=== PATIENT | female | born 1955 | race African-American/Black ===

== ENCOUNTER 2019-03-11 10:42 | Inpatient (IN) | payer MEDICARE, BC ==
[~2019-03-11] VITALS: Ht 167.6 cm; Wt 103.0 kg
[~2019-03-11 10:42] MED LIST: ACET-2708 PO; AMLO10TA80 PO; ASPI-1393 PO; ATEN-42 PO; CETI10TA6 PO; CYAN500T66 PO; DORZ10DR8 BOTHEYE; GABA-531 PO; HYDR25TA PO; LACTATED RINGERS 1,000 ML IV SCH; LISI40TA4 PO; OMEP40CA34 PO; TRAM50TA3 PO; TRANEXAMIC ACID 1,000 MG in SODIUM CHLORIDE 0.9% 100 ML IV SCH; XALAO EACHEYE
[2019-03-11 11:59] LABS: CLARITY URINE CLEAR (CLEAR); COLOR URINE YELLOW (YELLOW); KETONES URINE NEGATIVE (NEGATIVE); LEUKOCYTE ESTERASE URINE NEGATIVE (NEGATIVE); NITRITE URINE NEGATIVE (NEGATIVE); OCCULT BLOOD URINE NEGATIVE (NEGATIVE); PROTEIN URINE NEGATIVE (NEGATIVE); SPECIFIC GRAVITY URINE 1.011 (1.005-1.030); UROBILINOGEN URINE 0.2 E.U./dL (0.2-1.0)
[2019-03-11] MEDS ORDERED: LACTATED RINGERS 1,000 ML IV SCH (12:00)
[2019-03-11] MEDS ORDERED: BUPIVACAINE/EPINEPH/PF 0.25%/0.0005 10ML ONE (12:05)
[2019-03-11] MEDS ORDERED: METHYLENE BLUE 50 MG/10 ML AMP IV ONE (12:05)
[2019-03-11] MEDS ORDERED: EPINEPHRINE 1:1000 1 MG/ML AMP ONE (12:06)
[2019-03-11] MEDS ORDERED: MORPHINE SULFATE/PF 1MG/ML 10ML AMP ONE (12:06)
[2019-03-11] MEDS ORDERED: GENTAMICIN SULF 40MG/ML 2ML VIAL ONE (12:06)
[2019-03-11] MEDS ORDERED: NORMAL SALINE 0.9% 10 ML SYR ONE (12:07)
[2019-03-11] MEDS ORDERED: BACITRACIN 50,000 UNITS/VIAL ONE (12:07)
[2019-03-11] MEDS ORDERED: VANCOMYCIN HCL 1 GM/VIAL ONE (12:07)
[2019-03-11] MEDS ORDERED: PROPOFOL 200MG/20ML VIAL IV ONE (13:24)
[2019-03-11] MEDS ORDERED: ROCURONIUM BROMIDE 10MG/ML VIAL 5ML IV ONE (13:24)
[2019-03-11] MEDS ORDERED: FENTANYL CITRATE/PF 50MCG/ML 2ML VIAL ONE (13:24)
[2019-03-11] MEDS ORDERED: GLYCOPYRROLATE 0.2 MG/ML 2ML VIAL ONE (13:24)
[2019-03-11] MEDS ORDERED: MIDAZOLAM HCL 2 MG/2 ML VIAL ONE (13:24)
[2019-03-11] MEDS ORDERED: NEOSTIGMINE METHYLSULFATE 1MG/ML 10 ML VIAL ONE (13:24)
[2019-03-11] MEDS ORDERED: EPHEDRINE SULFATE 50MG/ML VIAL ONE (13:24)
[2019-03-11] MEDS ORDERED: PHENYLEPHRINE HCL 10 MG/ML 1ML (IV VIAL) IV ONE (13:24)
[2019-03-11] MEDS ORDERED: SODIUM CHLORIDE 0.9% 10ML VIAL ONE (13:24)
[2019-03-11] MEDS ORDERED: CEFAZOLIN SODIUM 1000MG/VIAL ONE (13:24)
[2019-03-11] MEDS ORDERED: SUCCINYLCHOLINE CHLORIDE 200MG/10ML IV ONE (13:24)
[2019-03-11] MEDS ORDERED: LIDOCAINE HCL/PF 1% 10 MG/ML 5ML VIAL ONE (13:24)
[2019-03-11] MEDS ORDERED: ROPIVACAINE HCL 10MG/ML 20 ML VIAL EPI ONE (13:25)
[2019-03-11] MEDS ORDERED: DEXAMETHASONE 4MG/ML 1ML VIAL ONE (13:25)
[2019-03-11] MEDS ORDERED: ONDANSETRON HCL 4MG/2ML INJ ONE (13:25)
[2019-03-11] MEDS ORDERED: METOCLOPRAMIDE HCL 10MG/2ML VIAL ONE (13:25)
[2019-03-11] MEDS ORDERED: HYDROMORPHONE HCL/PF 2MG/ML CPJ IV PRN (16:15)
[2019-03-11] MEDS ORDERED: MEPERIDINE HCL/PF 25MG/ML CPJ IV PRN ×2 (16:15)
[2019-03-11] MEDS ORDERED: MORPHINE SULFATE 2 MG/ML CPJ (NOT FOR IM USE) IV PRN (16:15)
[2019-03-11] MEDS ORDERED: ONDANSETRON HCL 4MG/2ML INJ IV PRN ×2 (16:15→21:06)
[2019-03-11] MEDS ORDERED: SODIUM CHLORIDE 0.9% 1,000 ML IV ONE (16:30)
[2019-03-11] MEDS ORDERED: HYDROMORPHONE PCA 50 ML IV ONE (19:14)
[2019-03-11] MEDS ORDERED: NALOXONE INJ IV PRN (19:15)
[2019-03-11] MEDS ORDERED: HYDROMORPHONE PCA 10MG/50ML IV PRN (19:15)
[2019-03-11] MEDS ORDERED: ONDANSETRON INJ IV PRN (19:15)
[2019-03-11] MEDS ORDERED: DIPHENHYDRAMINE INJ IV PRN (19:15)
[2019-03-11 20:45] VITALS: BP 146/77
[2019-03-11] MEDS ORDERED: ZOLPIDEM TARTRATE 5MG TABLET PO PRN (21:00)
[2019-03-11] MEDS ORDERED: HYDROCODONE/ACETAMINOPHEN 10/325MG TABLET PO PRN (21:05)
[2019-03-11] MEDS ORDERED: ACETAMINOPHEN 325MG TABLET PO PRN (21:06)
[2019-03-11] MEDS ORDERED: MAGNESIUM HYDROXIDE 400MG/5ML 30ML UDC PO PRN (21:07)
[2019-03-11 22:25] VITALS: BP 146/77
[2019-03-12] VITALS: BP 119/60
[2019-03-12] MEDS: CEFAZOLIN 2,000 MG in DEXT 5% WATER 100 ML IV SCH ×2 (01:12→08:29)
[2019-03-12 04:00] VITALS: BP 127/69
[2019-03-12 07:28] LABS: BASOPHILS % 0.3 % (0.0-2.0); CHLORIDE 107 mEq/L (98-107); HEMATOCRIT. 30.5 % (36.0-48.0); HEMOGLOBIN. 9.9 g/dL (12.0-16.0); LYMPHOCYTES % 18.1 % (20.0-50.0); MEAN CORPUSCULAR HEMOGLOBIN 23.9 pg (28.0-32.0); MEAN CORPUSCULAR VOLUME 73.2 fL (81.0-99.0); MEAN PLATELET VOLUME 8.8 fl (7.4-10.4); MONOCYTES % 6.5 % (2.0-8.0); NEUTROPHILS % 75.1 % (40.0-76.0); PLATELET 254 x1000/uL (130-400); RED BLOOD CELL COUNT 4.17 mill/uL (4.2-5.4); RED CELL DISTRIBUTION WIDTH 15.7 % (11.6-14.6)
[2019-03-12 08:00] VITALS: BP 125/57
[2019-03-12] MEDS: DOCUSATE SODIUM 100MG CAPSULE PO SCH ×2 (08:28→16:50)
[2019-03-12] MEDS: ENOXAPARIN 30MG/0.3ML SYR SUBCUT SCH ×2 (11:35→20:27)
[2019-03-12 12:00] VITALS: BP 127/61
[2019-03-12] MEDS ORDERED: POTASSIUM CHLORIDE 20MEQ TABLET SR PO SCH (12:45)
[2019-03-12 16:00] VITALS: BP 125/74
[2019-03-12] MEDS: GABAPENTIN 300MG CAPSULE PO SCH (16:50)
[2019-03-12] MEDS: ATENOLOL 25MG TABLET PO SCH (16:54)
[2019-03-12] MEDS: DORZOLAMIDE 2% OPHTH 10 ML BOTTLE BOTHEYE SCH (18:07)
[2019-03-12 20:00] VITALS: BP 118/62
[2019-03-12] MEDS: LATANOPROST 0.005% OPHTH DROPS 2.5ML EACHEYE SCH (20:27)
[2019-03-12] MEDS: DIPHENHYDRAMINE 50MG/ML VIAL IM PRN (20:29)
[2019-03-12] MEDS: HYDROCODONE/ACETAMINOPHEN 10/325MG TABLET PO PRN (20:29)
[2019-03-13] VITALS: BP_SYST 107; BP_SYST 125; BP_DIAS 56; BP_DIAS 82
[2019-03-13] MEDS: HYDROCODONE/ACETAMINOPHEN 10/325MG TABLET PO PRN ×4 (03:03→22:50)
[2019-03-13 04:00] VITALS: BP 100/48
[2019-03-13 06:24] LABS: CHLORIDE 109 mEq/L (98-107)
[2019-03-13 06:26] LABS: BASOPHILS % 0.7 % (0.0-2.0); EOSINOPHILS % 0.3 % (0.0-5.0); HEMATOCRIT. 27.6 % (36.0-48.0); HEMOGLOBIN. 8.9 g/dL (12.0-16.0); MEAN CORPUSCULAR HEMOGLOBIN 23.9 pg (28.0-32.0); MEAN CORPUSCULAR VOLUME 73.7 fL (81.0-99.0); MEAN PLATELET VOLUME 8.4 fl (7.4-10.4); MONOCYTES % 12.1 % (2.0-8.0); NEUTROPHILS % 55.9 % (40.0-76.0); PLATELET 222 x1000/uL (130-400); RED BLOOD CELL COUNT 3.75 mill/uL (4.2-5.4); RED CELL DISTRIBUTION WIDTH 15.9 % (11.6-14.6)
[2019-03-13 06:29] LABS: TOTAL IRON BINDING CAPACITY 260 ug/dL (250-450)
[2019-03-13 06:30] LABS: LDL CHOLESTEROL 75 mg/dL (5-100)
[2019-03-13 06:32] LABS: HDL CHOLESTEROL 49 mg/dL (40-59)
[2019-03-13] MEDS: OMEPRAZOLE 20MG CAPSULE EXTENDED RELEASE PO SCH (06:49)
[2019-03-13 08:00] VITALS: BP 149/75
[2019-03-13] MEDS: DORZOLAMIDE 2% OPHTH 10 ML BOTTLE BOTHEYE SCH ×2 (08:37→16:19)
[2019-03-13] MEDS: GABAPENTIN 300MG CAPSULE PO SCH ×2 (08:38→16:19)
[2019-03-13] MEDS: DOCUSATE SODIUM 100MG CAPSULE PO SCH ×2 (08:38→16:19)
[2019-03-13] MEDS: CETIRIZINE 10MG TABLET PO SCH (08:38)
[2019-03-13] MEDS: ENOXAPARIN 30MG/0.3ML SYR SUBCUT SCH ×2 (08:39→21:08)
[2019-03-13] MEDS: AMLODIPINE 10MG TABLET PO SCH (08:42)
[2019-03-13] MEDS: ATENOLOL 25MG TABLET PO SCH (08:43)
[2019-03-13] MEDS ORDERED: POTASSIUM CHLORIDE 20MEQ TABLET SR PO NR (09:45)
[2019-03-13 12:00] VITALS: BP 129/70
[2019-03-13] MEDS ORDERED: BISACODYL 10MG SUPP PR PRN (13:00)
[2019-03-13 16:00] VITALS: BP 137/87
[2019-03-13 20:00] VITALS: BP 121/84
[2019-03-13] MEDS: LATANOPROST 0.005% OPHTH DROPS 2.5ML EACHEYE SCH (21:09)
[2019-03-14] VITALS: BP 124/78
[2019-03-14 03:18] VITALS: BP 124/78
[2019-03-14 04:00] VITALS: BP 132/76
[2019-03-14] MEDS: HYDROCODONE/ACETAMINOPHEN 10/325MG TABLET PO PRN ×2 (04:51→10:58)
[2019-03-14] MEDS: OMEPRAZOLE 20MG CAPSULE EXTENDED RELEASE PO SCH (06:20)
[2019-03-14 08:05] VITALS: BP 136/79
[2019-03-14] MEDS: ATENOLOL 25MG TABLET PO SCH (09:21)
[2019-03-14] MEDS: CETIRIZINE 10MG TABLET PO SCH (09:21)
[2019-03-14] MEDS: GABAPENTIN 300MG CAPSULE PO SCH (09:21)
[2019-03-14] MEDS: DOCUSATE SODIUM 100MG CAPSULE PO SCH (09:21)
[2019-03-14] MEDS: AMLODIPINE 10MG TABLET PO SCH (09:22)
[2019-03-14] MEDS: DORZOLAMIDE 2% OPHTH 10 ML BOTTLE BOTHEYE SCH (09:22)
[2019-03-14] MEDS: ENOXAPARIN 30MG/0.3ML SYR SUBCUT SCH (09:22)
[2019-03-14] MEDS: DIPHENHYDRAMINE 50MG/ML VIAL IM PRN (09:23)
[2019-03-14 11:02] VITALS: BP 136/79
== END 2019-03-14 12:11 | disposition home or self-care (01) | DRG 470 ==
LOC: OR 10:42 → 6EST 22:18
PROVIDERS: ADMIT Internal Medicine; ATTEND Internal Medicine
PROC: 0SRD0J9 Replacement of Left Knee Joint with Synthetic Substitute, Cemented, Open Approach (ICD-10-PCS; principal; 2019-03-11)
DX: M17.12 Unilateral primary osteoarthritis, left knee (principal); D50.9 Iron deficiency anemia, unspecified; E78.5 Hyperlipidemia, unspecified; E87.6 Hypokalemia; G89.29 Other chronic pain; K21.9 Gastro-esophageal reflux disease without esophagitis; I10 Essential (primary) hypertension; E66.9 Obesity, unspecified; R01.1 Cardiac murmur, unspecified; M65.9 Synovitis and tenosynovitis, unspecified; R73.03 Prediabetes; Z79.899 Other long term (current) drug therapy; Z68.36 Body mass index [BMI] 36.0-36.9, adult
CPT/HCPCS: 36415; 73560; 80048; 80061; 81003; 82728; 82962; 83036; 83540; 83550; 86850; 86900; 88305; 88311; 97110; 97116; 97162; 97166; 97530; 97535; C1713; C1776; J0171; J0330; J0690; J1100; J1170; J1200; J1580; J1650; J2250; J2274; J2370; J2405; J2704; J2710; J2765; J2795; J3010; J3370; J3490; J7050; J7060; L1830; Q9968

== ENCOUNTER 2020-11-22 05:23 | Inpatient (IN) | payer MEDICARE, BC ==
[~2020-11-22] VITALS: Ht 167.6 cm; Wt 113.0 kg
[2020-11-22] VITALS (43 sets, daily range): BP systolic 81–149; BP diastolic 22–98
[~2020-11-22 05:23] MED LIST changes: -ASPI-1393 PO; +ASPI-1497 PO; +ATOR20TA65 PO; -CYAN500T66 PO; +CYAN500T9 PO; +DOCU100T PO; -GABA-531 PO; +GABA-532 PO; -LACTATED RINGERS 1,000 ML IV SCH; -LISI40TA4 PO; +METF-414 PO; +OMEP40CA12 PO; -OMEP40CA34 PO; +POTA-9 PO; -TRANEXAMIC ACID 1,000 MG in SODIUM CHLORIDE 0.9% 100 ML IV SCH; +VALS160T28 PO
[2020-11-22] MEDS ORDERED: LIDOCAINE HCL/EPINEPHRINE 1%-EPI 1:100,000 20 ML VIAL ONE (06:10)
[2020-11-22] MEDS ORDERED: THROMBIN (BOVINE) 5000 UNITS/VIAL TOP ONE (06:10)
[2020-11-22] MEDS ORDERED: BACITRACIN 50,000 UNITS/VIAL ONE (06:10)
[2020-11-22 06:13] LABS: HEMATOCRIT 39.2 % (36.0-48.0); HEMOGLOBIN 12.6 g/dL (12.0-16.0); MEAN CORPUSCULAR HEMOGLOBIN 22.9 pg (28.0-32.0); MEAN CORPUSCULAR VOLUME 71.6 fL (81.0-99.0); PLATELET 335 x1000/uL (130-400); RED BLOOD CELL COUNT 5.47 mill/uL (4.2-5.4)
[2020-11-22 06:19] LABS: CHLORIDE 107 mEq/L (98-107)
[2020-11-22] MEDS ORDERED: SODIUM CHLORIDE 0.9% 1,000 ML IV SCH (06:30)
[2020-11-22] MEDS ORDERED: ASPI-1497 MT (06:38)
[2020-11-22] MEDS ORDERED: ACETAMINOPHEN 500MG TABLET ONE (06:41)
[2020-11-22] MEDS ORDERED: NICARDIPINE 40MG/200ML PREMIX 200 ML IV ONE (07:14)
[2020-11-22] MEDS ORDERED: FENTANYL CITRATE/PF 50MCG/ML 2ML VIAL ONE ×2 (07:16→10:52)
[2020-11-22] MEDS ORDERED: PROPOFOL 200MG/20ML VIAL IV ONE (07:17)
[2020-11-22] MEDS ORDERED: PROPOFOL 10MG/ML 100ML 100 ML IV ONE ×2 (07:18→07:19)
[2020-11-22] MEDS ORDERED: MIDAZOLAM HCL 2 MG/2 ML VIAL ONE (07:20)
[2020-11-22] MEDS ORDERED: CEFAZOLIN SODIUM 1000MG/VIAL ONE (07:22)
[2020-11-22] MEDS ORDERED: PHENYLEPHRINE HCL 10 MG/ML 1ML (IV VIAL) IV ONE (07:25)
[2020-11-22] MEDS ORDERED: MORPHINE SULFATE 4 MG/ML CPJ (NOT FOR IM USE) IV PRN (07:30)
[2020-11-22] MEDS ORDERED: ONDANSETRON HCL 4MG/2ML INJ IV PRN (07:30)
[2020-11-22] MEDS ORDERED: NICARDIPINE 100 MG in SODIUM CHLORIDE 0.9% 60 ML IV PRN (07:30)
[2020-11-22] MEDS ORDERED: NALOXONE HCL 0.4MG/ML VIAL IV PRN (07:45)
[2020-11-22] MEDS ORDERED: DEXT 5%/LACTATED RINGERS 1,000 ML IV SCH (08:00)
[2020-11-22] MEDS ORDERED: HYDROMORPHONE HCL/PF 2MG/ML CPJ IV PRN (08:45)
[2020-11-22] MEDS ORDERED: GLYCOPYRROLATE 0.2 MG/ML 2ML VIAL ONE (08:48)
[2020-11-22] MEDS ORDERED: NEOSTIGMINE METHYLSULFATE 1MG/ML 10 ML VIAL ONE (08:56)
[2020-11-22] MEDS ORDERED: HYDROMORPHONE HCL/PF 2MG/ML (OR) ONE (09:19)
[2020-11-22] MEDS ORDERED: KETOROLAC 30MG/ML VIAL ONE (09:56)
[2020-11-22] MEDS ORDERED: NALOXONE INJ IV PRN (11:15)
[2020-11-22] MEDS ORDERED: DIPHENHYDRAMINE INJ IV PRN (11:15)
[2020-11-22] MEDS ORDERED: ONDANSETRON INJ IV PRN (11:15)
[2020-11-22] MEDS: HYDROMORPHONE PCA 10MG/50ML IV PRN (12:17)
[2020-11-22] MEDS: DEXT 5%/LACTATED RINGERS 1,000 ML IV SCH ×2 (13:26→19:58)
[2020-11-22] MEDS ORDERED: CEFAZOLIN SODIUM 1000MG/VIAL IV SCH (14:00)
[2020-11-22] MEDS ORDERED: NITROPRUSSIDE 100 MG in DEXT 5% WATER 250 ML IV PRN (15:00)
[2020-11-22] MEDS ORDERED: DEXTROSE 50% WATER 50ML SYRINGE IV PRN (16:15)
[2020-11-22] MEDS: CEFAZOLIN 1000MG PREMIX 50 ML IV SCH ×2 (16:28→23:26)
[2020-11-22] MEDS: BLOOD SUGAR DIAGNOSTIC STRIP TEST SCH ×2 (16:54→20:37)
[2020-11-22] MEDS: INSULIN LISPRO 100 UNITS/ML SUBCUT SCH ×2 (16:54→20:37)
[2020-11-22] MEDS: ATORVASTATIN CALCIUM 20MG TABLET PO SCH (20:33)
[2020-11-23] VITALS (36 sets, daily range): BP systolic 86–169; BP diastolic 48–88
[2020-11-23] MEDS: DEXT 5%/LACTATED RINGERS 1,000 ML IV SCH ×3 (03:12→20:48)
[2020-11-23 06:29] LABS: BASOPHILS % 0.3 % (0.0-2.0); EOSINOPHILS % 2.5 % (0.0-5.0); HEMATOCRIT. 27.6 % (36.0-48.0); HEMOGLOBIN. 9.1 g/dL (12.0-16.0); LYMPHOCYTES % 21.3 % (20.0-50.0); MEAN CORPUSCULAR HEMOGLOBIN 23.4 pg (28.0-32.0); MEAN CORPUSCULAR VOLUME 71.3 fL (81.0-99.0); MEAN PLATELET VOLUME 9.2 fl (7.4-10.4); MONOCYTES % 10.9 % (2.0-8.0); PLATELET 228 x1000/uL (130-400); RED BLOOD CELL COUNT 3.87 mill/uL (4.2-5.4); RED CELL DISTRIBUTION WIDTH 16.2 % (11.6-14.6)
[2020-11-23] MEDS: BLOOD SUGAR DIAGNOSTIC STRIP TEST SCH ×4 (06:30→20:56)
[2020-11-23] MEDS: INSULIN LISPRO 100 UNITS/ML SUBCUT SCH ×4 (06:31→20:47)
[2020-11-23 06:37] LABS: CHLORIDE 113 mEq/L (98-107)
[2020-11-23 06:58] LABS: LDL CHOLESTEROL 32 mg/dL (5-100)
[2020-11-23 07:00] LABS: HDL CHOLESTEROL 44 mg/dL (40-59)
[2020-11-23] MEDS: CEFAZOLIN 1000MG PREMIX 50 ML IV SCH ×3 (08:52→23:50)
[2020-11-23] MEDS: HYDROCHLOROTHIAZIDE 25MG TABLET PO SCH (08:53)
[2020-11-23] MEDS: OMEPRAZOLE 20MG CAPSULE EXTENDED RELEASE PO SCH ×2 (08:53→17:35)
[2020-11-23] MEDS: LOSARTAN POTASSIUM 100 MG TABLET PO SCH (08:53)
[2020-11-23] MEDS: AMLODIPINE 10MG TABLET PO SCH (08:53)
[2020-11-23] MEDS ORDERED: NON FORMULARY PATIENT HOME MED XX SCH (09:00)
[2020-11-23] MEDS: ATORVASTATIN CALCIUM 20MG TABLET PO SCH (20:48)
[2020-11-24] VITALS: BP 138/61
[2020-11-24 04:00] VITALS: BP 114/61
[2020-11-24] MEDS: DEXT 5%/LACTATED RINGERS 1,000 ML IV SCH ×3 (04:00→21:34)
[2020-11-24] MEDS ORDERED: POTASSIUM CHLORIDE 20MEQ TABLET SR PO SCH (06:30)
[2020-11-24] MEDS: OMEPRAZOLE 20MG CAPSULE EXTENDED RELEASE PO SCH ×2 (06:31→16:59)
[2020-11-24] MEDS: BLOOD SUGAR DIAGNOSTIC STRIP TEST SCH ×4 (06:50→21:35)
[2020-11-24 08:00] VITALS: BP 123/57
[2020-11-24] MEDS: CEFAZOLIN 1000MG PREMIX 50 ML IV SCH (09:06)
[2020-11-24] MEDS: AMLODIPINE 10MG TABLET PO SCH (09:07)
[2020-11-24] MEDS: HYDROCHLOROTHIAZIDE 25MG TABLET PO SCH (09:07)
[2020-11-24] MEDS: INSULIN LISPRO 100 UNITS/ML SUBCUT SCH ×4 (09:15→21:00)
[2020-11-24 12:00] VITALS: BP 145/70
[2020-11-24] MEDS ORDERED: POTASSIUM CHLORIDE INJ 40 MEQ in DEXT 5% WATER 500 ML IV SCH (14:00)
[2020-11-24 16:00] VITALS: BP 115/70
[2020-11-24 20:00] VITALS: BP_SYST 125; BP_SYST 132; BP_DIAS 51; BP_DIAS 66
[2020-11-24] MEDS: ATORVASTATIN CALCIUM 20MG TABLET PO SCH (21:35)
[2020-11-24] MEDS: FAMOTIDINE 20MG TABLET PO SCH (21:35)
[2020-11-25] VITALS: BP 114/57
[2020-11-25 04:00] VITALS: BP 124/59
[2020-11-25] MEDS: DEXT 5%/LACTATED RINGERS 1,000 ML IV SCH (04:48)
[2020-11-25] MEDS: BLOOD SUGAR DIAGNOSTIC STRIP TEST SCH ×4 (06:20→21:15)
[2020-11-25 07:20] LABS: BASOPHILS % 0.5 % (0.0-2.0); EOSINOPHILS % 1.8 % (0.0-5.0); HEMATOCRIT. 30.3 % (36.0-48.0); HEMOGLOBIN. 9.8 g/dL (12.0-16.0); LYMPHOCYTES % 19.9 % (20.0-50.0); MEAN CORPUSCULAR VOLUME 70.7 fL (81.0-99.0); MEAN PLATELET VOLUME 8.8 fl (7.4-10.4); MONOCYTES % 11.4 % (2.0-8.0); NEUTROPHILS % 66.4 % (40.0-76.0); PLATELET 244 x1000/uL (130-400); RED BLOOD CELL COUNT 4.29 mill/uL (4.2-5.4)
[2020-11-25 07:43] LABS: CHLORIDE 98 mEq/L (98-107)
[2020-11-25 08:00] VITALS: BP 127/68
[2020-11-25] MEDS: FAMOTIDINE 20MG TABLET PO SCH ×2 (09:11→21:15)
[2020-11-25] MEDS: LOSARTAN POTASSIUM 100 MG TABLET PO SCH ×2 (09:11→09:17)
[2020-11-25] MEDS: HYDROCHLOROTHIAZIDE 25MG TABLET PO SCH (09:11)
[2020-11-25] MEDS: AMLODIPINE 10MG TABLET PO SCH (09:12)
[2020-11-25] MEDS: INSULIN LISPRO 100 UNITS/ML SUBCUT SCH ×4 (09:16→21:00)
[2020-11-25] MEDS ORDERED: POLYETHYLENE GLYCOL 3350 (17GM) 1 DOSE PACK PO NR (09:45)
[2020-11-25] MEDS ORDERED: POTASSIUM CHLORIDE 20MEQ TABLET SR PO NR (09:45)
[2020-11-25 12:00] VITALS: BP 146/77
[2020-11-25 16:00] VITALS: BP 124/79
[2020-11-25] MEDS: DOCUSATE SODIUM 100MG CAPSULE PO SCH (17:48)
[2020-11-25] MEDS: LACTULOSE 20G/30ML UDC PO SCH ×2 (17:48→21:15)
[2020-11-25] MEDS: HYDROMORPHONE PCA 10MG/50ML IV PRN (20:57)
[2020-11-25] MEDS ORDERED: POLYETHYLENE GLYCOL 3350 (17GM) 1 DOSE PACK PO SCH (21:00)
[2020-11-25 21:14] VITALS: BP 122/55
[2020-11-25] MEDS: ATORVASTATIN CALCIUM 20MG TABLET PO SCH (21:15)
[2020-11-26 00:29] VITALS: BP 120/60
[2020-11-26 04:00] VITALS: BP 117/60
[2020-11-26] MEDS: BLOOD SUGAR DIAGNOSTIC STRIP TEST SCH ×3 (07:20→17:21)
[2020-11-26] MEDS: INSULIN LISPRO 100 UNITS/ML SUBCUT SCH ×3 (07:50→17:21)
[2020-11-26 08:00] VITALS: BP 123/65
[2020-11-26] MEDS: LACTULOSE 20G/30ML UDC PO SCH ×3 (08:23→17:08)
[2020-11-26] MEDS: LOSARTAN POTASSIUM 100 MG TABLET PO SCH (08:23)
[2020-11-26] MEDS: HYDROCHLOROTHIAZIDE 25MG TABLET PO SCH (08:23)
[2020-11-26] MEDS: FAMOTIDINE 20MG TABLET PO SCH (08:23)
[2020-11-26] MEDS: DOCUSATE SODIUM 100MG CAPSULE PO SCH ×2 (08:24→17:08)
[2020-11-26] MEDS: AMLODIPINE 10MG TABLET PO SCH (08:26)
[2020-11-26] MEDS ORDERED: BISACODYL 10MG SUPP PR NR (10:30)
[2020-11-26 12:00] VITALS: BP 120/67
[2020-11-26 16:00] VITALS: BP 100/57
[2020-11-26 17:10] VITALS: BP 100/57
== END 2020-11-26 18:00 | DRG 459 ==
LOC: OR 05:23 → MICUNO 07:00 → 6EST 11-23 10:17
PROVIDERS: ADMIT Neurological Surgery; ATTEND Neurological Surgery
PROC: 0SG0071 Fusion of Lumbar Vertebral Joint with Autologous Tissue Substitute, Posterior Approach, Posterior Column, Open Approach (ICD-10-PCS; principal; 2020-11-22)
PROC: 01NB0ZZ Release Lumbar Nerve, Open Approach (ICD-10-PCS; 2020-11-22)
PROC: 4A11X4G Monitoring of Peripheral Nervous Electrical Activity, Intraoperative, External Approach (ICD-10-PCS; 2020-11-22)
DX: M48.061 Spinal stenosis, lumbar region without neurogenic claudication (principal); E43 Unspecified severe protein-calorie malnutrition; G82.20 Paraplegia, unspecified; G95.9 Disease of spinal cord, unspecified; Z68.41 Body mass index [BMI] 40.0-44.9, adult; M43.16 Spondylolisthesis, lumbar region; M19.90 Unspecified osteoarthritis, unspecified site; K21.9 Gastro-esophageal reflux disease without esophagitis; I10 Essential (primary) hypertension; E87.6 Hypokalemia; E11.9 Type 2 diabetes mellitus without complications; R00.1 Bradycardia, unspecified; Z96.653 Presence of artificial knee joint, bilateral; G89.4 Chronic pain syndrome; R53.81 Other malaise; R26.9 Unspecified abnormalities of gait and mobility; E66.9 Obesity, unspecified; M54.16 Radiculopathy, lumbar region; K59.00 Constipation, unspecified; Z88.8 Allergy status to other drugs, medicaments and biological substances; Z91.013 Allergy to seafood; Z82.49 Family history of ischemic heart disease and other diseases of the circulatory system
CPT/HCPCS: 36415; 71045; 72100; 74018; 76000; 80048; 80053; 80061; 82962; 83036; 84443; 85025; 85027; 86850; 86900; 88305; 88311; 95863; 95925; 95926; 95928; 95929; 97110; 97116; 97162; 97166; 97530; 97535; 97760; C1713; J0690; J1170; J1815; J1885; J2250; J2370; J2704; J2710; J3010; J3480; J3490; J7042; J7060; J7121; C1762

== ENCOUNTER 2020-11-26 18:15 | Inpatient (IN) | payer MEDICARE, BC ==
[~2020-11-26] VITALS: Ht 167.6 cm; Wt 100.7 kg
[~2020-11-26 18:15] MED LIST changes: +ASPI-1497 MT; -ASPI-1497 PO; -CYAN500T9 PO; -DORZ10DR8 BOTHEYE; -XALAO EACHEYE
[2020-11-26 18:30] VITALS: BP 139/85
[2020-11-26 19:00] VITALS: BP 130/80
[2020-11-26 20:00] VITALS: BP 130/80
[2020-11-26] MEDS ORDERED: NALOXONE HCL 0.4MG/ML VIAL IV PRN (20:00)
[2020-11-26] MEDS ORDERED: ONDANSETRON HCL 4MG TABLET PO PRN (20:15)
[2020-11-26] MEDS ORDERED: DEXTROSE 50% WATER 50ML SYRINGE IV PRN (20:15)
[2020-11-26] MEDS: HYDROCODONE/ACETAMINOPHEN 5/325MG TABLET PO PRN (20:33)
[2020-11-26] MEDS: BLOOD SUGAR DIAGNOSTIC STRIP TEST SCH (21:00)
[2020-11-26] MEDS: ATORVASTATIN CALCIUM 20MG TABLET PO SCH (21:12)
[2020-11-26] MEDS: FAMOTIDINE 20MG TABLET PO SCH (21:12)
[2020-11-26] MEDS: INSULIN LISPRO 100 UNITS/ML SUBCUT SCH (22:44)
[2020-11-27] MEDS: HYDROCODONE/ACETAMINOPHEN 5/325MG TABLET PO PRN ×2 (02:28→07:55)
[2020-11-27] MEDS: BLOOD SUGAR DIAGNOSTIC STRIP TEST SCH ×4 (06:28→20:54)
[2020-11-27] MEDS: INSULIN LISPRO 100 UNITS/ML SUBCUT SCH ×4 (06:53→20:57)
[2020-11-27 07:02] LABS: BASOPHILS % 0.7 % (0.0-2.0); EOSINOPHILS % 2.8 % (0.0-5.0); HEMATOCRIT. 30.5 % (36.0-48.0); HEMOGLOBIN. 10.1 g/dL (12.0-16.0); LYMPHOCYTES % 24.8 % (20.0-50.0); MEAN CORPUSCULAR HEMOGLOBIN 23.2 pg (28.0-32.0); MEAN CORPUSCULAR VOLUME 69.7 fL (81.0-99.0); MEAN PLATELET VOLUME 8.2 fl (7.4-10.4); MONOCYTES % 13.1 % (2.0-8.0); NEUTROPHILS % 58.6 % (40.0-76.0); PLATELET 329 x1000/uL (130-400); RED BLOOD CELL COUNT 4.37 mill/uL (4.2-5.4); RED CELL DISTRIBUTION WIDTH 15.9 % (11.6-14.6)
[2020-11-27 07:04] LABS: CHLORIDE 99 mEq/L (98-107)
[2020-11-27] MEDS: ACETAMINOPHEN 325MG TABLET PO PRN (07:27)
[2020-11-27 08:24] VITALS: BP 131/70
[2020-11-27] MEDS: DOCUSATE SODIUM 100MG CAPSULE PO SCH ×2 (11:47→17:23)
[2020-11-27] MEDS: LOSARTAN POTASSIUM 100 MG TABLET PO SCH (11:48)
[2020-11-27] MEDS: HYDROCHLOROTHIAZIDE 25MG TABLET PO SCH (11:48)
[2020-11-27] MEDS: FAMOTIDINE 20MG TABLET PO SCH ×2 (11:48→20:53)
[2020-11-27] MEDS: AMLODIPINE 10MG TABLET PO SCH (11:49)
[2020-11-27] MEDS ORDERED: HYDROCODONE/ACETAMINOPHEN 10/325MG TABLET PO PRN (12:00)
[2020-11-27] MEDS ORDERED: POTASSIUM CHLORIDE 20MEQ TABLET SR PO NR (12:00)
[2020-11-27 12:32] LABS: PLATELET ESTIMATE NORMAL
[2020-11-27] MEDS: HYDROCODONE/ACETAMINOPHEN 10/325MG TABLET PO PRN ×2 (13:17→20:13)
[2020-11-27 20:00] VITALS: BP 139/80
[2020-11-27] MEDS: ATORVASTATIN CALCIUM 20MG TABLET PO SCH (20:53)
[2020-11-27] MEDS: MORPHINE SULFATE 2 MG/ML CPJ (NOT FOR IM USE) IV PRN (22:27)
[2020-11-28] MEDS: HYDROCODONE/ACETAMINOPHEN 10/325MG TABLET PO PRN ×3 (03:10→21:44)
[2020-11-28] MEDS: BLOOD SUGAR DIAGNOSTIC STRIP TEST SCH ×4 (06:20→21:39)
[2020-11-28] MEDS: INSULIN LISPRO 100 UNITS/ML SUBCUT SCH ×4 (06:23→21:00)
[2020-11-28] MEDS: MORPHINE SULFATE 2 MG/ML CPJ (NOT FOR IM USE) IV PRN (06:32)
[2020-11-28 06:44] LABS: BASOPHILS % 0.5 % (0.0-2.0); EOSINOPHILS % 6.2 % (0.0-5.0); HEMATOCRIT. 30.2 % (36.0-48.0); HEMOGLOBIN. 9.8 g/dL (12.0-16.0); LYMPHOCYTES % 30.1 % (20.0-50.0); MEAN CORPUSCULAR HEMOGLOBIN 22.9 pg (28.0-32.0); MEAN CORPUSCULAR VOLUME 70.3 fL (81.0-99.0); MONOCYTES % 14.2 % (2.0-8.0); PLATELET 333 x1000/uL (130-400); RED CELL DISTRIBUTION WIDTH 15.7 % (11.6-14.6)
[2020-11-28 06:56] LABS: CHLORIDE 98 mEq/L (98-107)
[2020-11-28 07:02] LABS: PHOSPHORUS 3.2 mg/dL (2.5-4.9)
[2020-11-28 07:03] LABS: LDL CHOLESTEROL 47 mg/dL (5-100); TOTAL IRON BINDING CAPACITY 244 ug/dL (250-450)
[2020-11-28 07:06] LABS: HDL CHOLESTEROL 51 mg/dL (40-59)
[2020-11-28 07:18] LABS: FERRITIN 56 ng/mL (10-291)
[2020-11-28 07:20] LABS: FOLIC ACID (FOLATE) SERUM >20 ng/mL ng/mL (>5.38)
[2020-11-28 07:31] LABS: VITAMIN B12 SERUM 899 pg/mL (211-911)
[2020-11-28 08:00] VITALS: BP 123/72
[2020-11-28] MEDS: FAMOTIDINE 20MG TABLET PO SCH ×2 (08:38→21:42)
[2020-11-28] MEDS: DOCUSATE SODIUM 100MG CAPSULE PO SCH ×2 (08:38→17:22)
[2020-11-28] MEDS: LOSARTAN POTASSIUM 100 MG TABLET PO SCH (08:38)
[2020-11-28] MEDS: AMLODIPINE 10MG TABLET PO SCH (08:39)
[2020-11-28] MEDS: HYDROCHLOROTHIAZIDE 25MG TABLET PO SCH (08:39)
[2020-11-28] MEDS: ACETAMINOPHEN 325MG TABLET PO PRN ×2 (08:39→18:46)
[2020-11-28] MEDS: POTASSIUM CHLORIDE 20MEQ TABLET SR PO SCH ×2 (12:37→17:22)
[2020-11-28] MEDS: FERROUS SULFATE 325MG TABLET PO SCH ×2 (12:37→17:22)
[2020-11-28] MEDS: ASCORBIC ACID 500 MG TABLET PO SCH (12:37)
[2020-11-28] MEDS: LACTULOSE 20G/30ML UDC PO SCH ×3 (12:38→21:00)
[2020-11-28] MEDS: GABAPENTIN 300MG CAPSULE PO SCH ×2 (14:57→21:44)
[2020-11-28] MEDS ORDERED: DOCUSATE SODIUM 100MG CAPSULE PO SCH (17:00)
[2020-11-28 20:00] VITALS: BP 118/62
[2020-11-28] MEDS: POLYETHYLENE GLYCOL 3350 (17GM) 1 DOSE PACK PO SCH ×2 (21:00→21:49)
[2020-11-28] MEDS: ATORVASTATIN CALCIUM 20MG TABLET PO SCH (21:42)
[2020-11-29] MEDS: GABAPENTIN 300MG CAPSULE PO SCH ×3 (05:49→22:38)
[2020-11-29] MEDS: HYDROCODONE/ACETAMINOPHEN 10/325MG TABLET PO PRN ×3 (05:53→22:46)
[2020-11-29] MEDS: INSULIN LISPRO 100 UNITS/ML SUBCUT SCH ×4 (06:41→21:00)
[2020-11-29] MEDS: BLOOD SUGAR DIAGNOSTIC STRIP TEST SCH ×4 (06:41→21:00)
[2020-11-29 08:00] VITALS: BP 131/68
[2020-11-29] MEDS: AMLODIPINE 10MG TABLET PO SCH (09:00)
[2020-11-29] MEDS: FAMOTIDINE 20MG TABLET PO SCH ×2 (09:41→22:39)
[2020-11-29] MEDS: ASCORBIC ACID 500 MG TABLET PO SCH (09:41)
[2020-11-29] MEDS: FERROUS SULFATE 325MG TABLET PO SCH ×3 (09:41→17:31)
[2020-11-29] MEDS: HYDROCHLOROTHIAZIDE 25MG TABLET PO SCH (09:41)
[2020-11-29] MEDS: POTASSIUM CHLORIDE 20MEQ TABLET SR PO SCH ×2 (09:41→17:31)
[2020-11-29] MEDS: LOSARTAN POTASSIUM 100 MG TABLET PO SCH (09:41)
[2020-11-29] MEDS: DOCUSATE SODIUM 100MG CAPSULE PO SCH ×2 (09:41→17:31)
[2020-11-29 20:00] VITALS: BP 139/68
[2020-11-29] MEDS: ATORVASTATIN CALCIUM 20MG TABLET PO SCH (22:39)
[2020-11-29] MEDS: DORZOLAM/TIMOLOL 2.23/0.68% OPHTH DROPS 10ML BOTHEYE SCH (22:48)
[2020-11-29] MEDS: LATANOPROST 0.005% OPHTH DROPS 2.5ML BOTHEYE SCH (22:48)
[2020-11-30 02:00] VITALS: BP 130/64
[2020-11-30] MEDS: GABAPENTIN 300MG CAPSULE PO SCH ×3 (05:55→22:18)
[2020-11-30] MEDS: HYDROCODONE/ACETAMINOPHEN 10/325MG TABLET PO PRN ×3 (05:59→22:20)
[2020-11-30] MEDS: BLOOD SUGAR DIAGNOSTIC STRIP TEST SCH ×4 (06:05→21:00)
[2020-11-30] MEDS: INSULIN LISPRO 100 UNITS/ML SUBCUT SCH ×4 (06:06→21:00)
[2020-11-30 08:07] VITALS: BP 125/64
[2020-11-30 09:05] LABS: BASOPHILS % 0.5 % (0.0-2.0); HEMATOCRIT. 31.9 % (36.0-48.0); HEMOGLOBIN. 10.5 g/dL (12.0-16.0); MEAN CORPUSCULAR HEMOGLOBIN 23.3 pg (28.0-32.0); MEAN CORPUSCULAR VOLUME 70.9 fL (81.0-99.0); MONOCYTES % 11.9 % (2.0-8.0); NEUTROPHILS % 51.6 % (40.0-76.0); PLATELET 439 x1000/uL (130-400); RED CELL DISTRIBUTION WIDTH 16.1 % (11.6-14.6)
[2020-11-30 09:17] LABS: CHLORIDE 103 mEq/L (98-107)
[2020-11-30] MEDS: POTASSIUM CHLORIDE 20MEQ TABLET SR PO SCH ×2 (09:56→16:46)
[2020-11-30] MEDS: HYDROCHLOROTHIAZIDE 25MG TABLET PO SCH (09:56)
[2020-11-30] MEDS: LOSARTAN POTASSIUM 100 MG TABLET PO SCH (09:57)
[2020-11-30] MEDS: DOCUSATE SODIUM 100MG CAPSULE PO SCH ×2 (09:57→16:46)
[2020-11-30] MEDS: FAMOTIDINE 20MG TABLET PO SCH ×2 (09:57→22:20)
[2020-11-30] MEDS: AMLODIPINE 10MG TABLET PO SCH (09:57)
[2020-11-30] MEDS: FERROUS SULFATE 325MG TABLET PO SCH ×3 (09:57→16:46)
[2020-11-30] MEDS: ASCORBIC ACID 500 MG TABLET PO SCH (09:57)
[2020-11-30] MEDS: DORZOLAM/TIMOLOL 2.23/0.68% OPHTH DROPS 10ML BOTHEYE SCH ×2 (09:58→22:22)
[2020-11-30] MEDS: MORPHINE SULFATE 2 MG/ML CPJ (NOT FOR IM USE) IV PRN (12:02)
[2020-11-30] MEDS: DIPHENHYDRAMINE HCL/ZINC ACET 28 GM CREAM TOP SCH (17:51)
[2020-11-30 20:00] VITALS: BP 133/66
[2020-11-30] MEDS: POLYETHYLENE GLYCOL 3350 (17GM) 1 DOSE PACK PO SCH (21:00)
[2020-11-30] MEDS: ATORVASTATIN CALCIUM 20MG TABLET PO SCH (22:20)
[2020-11-30] MEDS: LATANOPROST 0.005% OPHTH DROPS 2.5ML BOTHEYE SCH (22:21)
[2020-12-01] MEDS: BLOOD SUGAR DIAGNOSTIC STRIP TEST SCH ×4 (05:54→21:43)
[2020-12-01] MEDS: INSULIN LISPRO 100 UNITS/ML SUBCUT SCH ×4 (05:54→21:00)
[2020-12-01] MEDS: GABAPENTIN 300MG CAPSULE PO SCH ×2 (05:56→14:01)
[2020-12-01] MEDS: HYDROCODONE/ACETAMINOPHEN 10/325MG TABLET PO PRN ×3 (05:58→19:34)
[2020-12-01 08:00] VITALS: BP 126/61
[2020-12-01] MEDS: ASCORBIC ACID 500 MG TABLET PO SCH (08:18)
[2020-12-01] MEDS: DIPHENHYDRAMINE 25MG CAPSULE PO PRN (08:19)
[2020-12-01] MEDS: FERROUS SULFATE 325MG TABLET PO SCH ×3 (08:19→17:38)
[2020-12-01] MEDS: HYDROCHLOROTHIAZIDE 25MG TABLET PO SCH (08:20)
[2020-12-01] MEDS: DOCUSATE SODIUM 100MG CAPSULE PO SCH ×2 (08:20→17:38)
[2020-12-01] MEDS: POTASSIUM CHLORIDE 20MEQ TABLET SR PO SCH ×2 (08:21→17:38)
[2020-12-01] MEDS: AMLODIPINE 10MG TABLET PO SCH (08:21)
[2020-12-01] MEDS: DORZOLAM/TIMOLOL 2.23/0.68% OPHTH DROPS 10ML BOTHEYE SCH ×2 (08:23→21:31)
[2020-12-01] MEDS: DIPHENHYDRAMINE HCL/ZINC ACET 28 GM CREAM TOP SCH ×3 (08:23→17:38)
[2020-12-01] MEDS: LOSARTAN POTASSIUM 100 MG TABLET PO SCH (08:39)
[2020-12-01] MEDS: FAMOTIDINE 20MG TABLET PO SCH ×2 (09:54→21:33)
[2020-12-01] MEDS ORDERED: GABAPENTIN 300MG CAPSULE PO SCH (14:15)
[2020-12-01 20:00] VITALS: BP 137/63
[2020-12-01] MEDS: POLYETHYLENE GLYCOL 3350 (17GM) 1 DOSE PACK PO SCH (21:31)
[2020-12-01] MEDS: LATANOPROST 0.005% OPHTH DROPS 2.5ML BOTHEYE SCH (21:31)
[2020-12-01] MEDS: ATORVASTATIN CALCIUM 20MG TABLET PO SCH (21:32)
[2020-12-01] MEDS: GABAPENTIN 400MG CAPSULE PO SCH (21:48)
[2020-12-02] MEDS: BLOOD SUGAR DIAGNOSTIC STRIP TEST SCH ×4 (05:01→21:00)
[2020-12-02] MEDS: GABAPENTIN 400MG CAPSULE PO SCH ×3 (05:01→21:01)
[2020-12-02] MEDS: HYDROCODONE/ACETAMINOPHEN 10/325MG TABLET PO PRN ×3 (05:12→22:22)
[2020-12-02] MEDS: INSULIN LISPRO 100 UNITS/ML SUBCUT SCH ×4 (07:41→21:00)
[2020-12-02 08:12] VITALS: BP 113/52
[2020-12-02] MEDS: POTASSIUM CHLORIDE 20MEQ TABLET SR PO SCH ×2 (08:22→17:11)
[2020-12-02] MEDS: DOCUSATE SODIUM 100MG CAPSULE PO SCH ×2 (08:23→17:11)
[2020-12-02] MEDS: FAMOTIDINE 20MG TABLET PO SCH ×2 (08:24→21:01)
[2020-12-02] MEDS: LOSARTAN POTASSIUM 100 MG TABLET PO SCH (08:24)
[2020-12-02] MEDS: HYDROCHLOROTHIAZIDE 25MG TABLET PO SCH (08:24)
[2020-12-02] MEDS: ASCORBIC ACID 500 MG TABLET PO SCH (08:24)
[2020-12-02] MEDS: FERROUS SULFATE 325MG TABLET PO SCH ×3 (08:24→17:11)
[2020-12-02] MEDS: AMLODIPINE 10MG TABLET PO SCH (08:24)
[2020-12-02] MEDS: DORZOLAM/TIMOLOL 2.23/0.68% OPHTH DROPS 10ML BOTHEYE SCH ×2 (08:26→21:00)
[2020-12-02] MEDS: DIPHENHYDRAMINE HCL/ZINC ACET 28 GM CREAM TOP SCH ×3 (09:33→17:00)
[2020-12-02] MEDS ORDERED: NALOXONE HCL 0.4MG/ML VIAL IV PRN (13:00)
[2020-12-02 15:23] LABS: CHLORIDE 103 mEq/L (98-107)
[2020-12-02 19:09] LABS: 25-HYDROXY VITAMIN D3 28 ng/mL (.)
[2020-12-02 20:00] VITALS: BP 127/68
[2020-12-02] MEDS: LATANOPROST 0.005% OPHTH DROPS 2.5ML BOTHEYE SCH (21:00)
[2020-12-02] MEDS: POLYETHYLENE GLYCOL 3350 (17GM) 1 DOSE PACK PO SCH (21:01)
[2020-12-02] MEDS: ATORVASTATIN CALCIUM 20MG TABLET PO SCH (21:01)
[2020-12-03] MEDS ORDERED: MORPHINE SULFATE 2 MG/ML CPJ (NOT FOR IM USE) IV PRN (01:45)
[2020-12-03] MEDS: HYDROCODONE/ACETAMINOPHEN 10/325MG TABLET PO PRN ×3 (06:23→19:52)
[2020-12-03] MEDS: GABAPENTIN 400MG CAPSULE PO SCH ×3 (06:23→21:02)
[2020-12-03] MEDS: INSULIN LISPRO 100 UNITS/ML SUBCUT SCH ×4 (06:24→20:30)
[2020-12-03] MEDS: BLOOD SUGAR DIAGNOSTIC STRIP TEST SCH ×4 (06:24→20:30)
[2020-12-03 07:39] VITALS: BP 117/62
[2020-12-03] MEDS: POTASSIUM CHLORIDE 20MEQ TABLET SR PO SCH (08:21)
[2020-12-03] MEDS: LOSARTAN POTASSIUM 100 MG TABLET PO SCH (08:21)
[2020-12-03] MEDS: FERROUS SULFATE 325MG TABLET PO SCH ×3 (08:21→16:25)
[2020-12-03] MEDS: HYDROCHLOROTHIAZIDE 25MG TABLET PO SCH (08:21)
[2020-12-03] MEDS: DOCUSATE SODIUM 100MG CAPSULE PO SCH ×2 (08:21→16:25)
[2020-12-03] MEDS: FAMOTIDINE 20MG TABLET PO SCH ×2 (08:21→20:29)
[2020-12-03] MEDS: ASCORBIC ACID 500 MG TABLET PO SCH (08:21)
[2020-12-03] MEDS: DORZOLAM/TIMOLOL 2.23/0.68% OPHTH DROPS 10ML BOTHEYE SCH ×2 (08:22→20:30)
[2020-12-03] MEDS: DIPHENHYDRAMINE HCL/ZINC ACET 28 GM CREAM TOP SCH ×3 (08:22→16:29)
[2020-12-03] MEDS ORDERED: FAMO20TA8 PO (10:45)
[2020-12-03] MEDS ORDERED: HYDR-4001 MT (10:45)
[2020-12-03] MEDS ORDERED: FERR325T23 PO (10:45)
[2020-12-03] MEDS ORDERED: POTA20TA82 PO (10:45)
[2020-12-03] MEDS ORDERED: GABA-533 PO (10:45)
[2020-12-03] MEDS ORDERED: ASCO500T20 PO (10:45)
[2020-12-03] MEDS ORDERED: LOSA100T3 PO (10:45)
[2020-12-03] MEDS ORDERED: ERGOCALCIFEROL 50000UNITS CAPSULE PO SCH (11:30)
[2020-12-03] MEDS: AMLODIPINE 10MG TABLET PO SCH (12:30)
[2020-12-03 20:00] VITALS: BP 127/54
[2020-12-03] MEDS: ATORVASTATIN CALCIUM 20MG TABLET PO SCH (20:29)
[2020-12-03] MEDS: LATANOPROST 0.005% OPHTH DROPS 2.5ML BOTHEYE SCH (20:30)
[2020-12-03] MEDS: POLYETHYLENE GLYCOL 3350 (17GM) 1 DOSE PACK PO SCH (20:30)
[2020-12-03] MEDS: DIPHENHYDRAMINE 25MG CAPSULE PO PRN (21:20)
[2020-12-04] MEDS: BLOOD SUGAR DIAGNOSTIC STRIP TEST SCH ×2 (06:03→12:04)
[2020-12-04] MEDS: GABAPENTIN 400MG CAPSULE PO SCH (06:03)
[2020-12-04] MEDS: INSULIN LISPRO 100 UNITS/ML SUBCUT SCH ×2 (06:04→12:04)
[2020-12-04] MEDS: HYDROCODONE/ACETAMINOPHEN 10/325MG TABLET PO PRN ×2 (06:07→12:18)
[2020-12-04 08:07] VITALS: BP 130/63
[2020-12-04] MEDS ORDERED: POTASSIUM CHLORIDE 20MEQ TABLET SR PO SCH (09:00)
[2020-12-04] MEDS: DOCUSATE SODIUM 100MG CAPSULE PO SCH (09:18)
[2020-12-04] MEDS: LOSARTAN POTASSIUM 100 MG TABLET PO SCH (09:18)
[2020-12-04] MEDS: FERROUS SULFATE 325MG TABLET PO SCH ×2 (09:18→12:18)
[2020-12-04] MEDS: ASCORBIC ACID 500 MG TABLET PO SCH (09:18)
[2020-12-04] MEDS: HYDROCHLOROTHIAZIDE 25MG TABLET PO SCH (09:18)
[2020-12-04] MEDS: AMLODIPINE 10MG TABLET PO SCH (09:18)
[2020-12-04] MEDS: FAMOTIDINE 20MG TABLET PO SCH (09:18)
[2020-12-04] MEDS: DIPHENHYDRAMINE HCL/ZINC ACET 28 GM CREAM TOP SCH ×2 (09:19→12:17)
[2020-12-04] MEDS: DORZOLAM/TIMOLOL 2.23/0.68% OPHTH DROPS 10ML BOTHEYE SCH (09:20)
[2020-12-04 10:56] VITALS: BP 130/63
[2020-12-04 12:20] VITALS: BP 124/77
== END 2020-12-04 13:35 | disposition home health service (06) | DRG 552 ==
PROVIDERS: ADMIT Physical Medicine & Rehabilitation Spinal Cord Injury Medicine; ATTEND Internal Medicine
DX: M48.061 Spinal stenosis, lumbar region without neurogenic claudication (principal); G82.20 Paraplegia, unspecified; G95.89 Other specified diseases of spinal cord; M43.16 Spondylolisthesis, lumbar region; M54.16 Radiculopathy, lumbar region; D50.9 Iron deficiency anemia, unspecified; E11.9 Type 2 diabetes mellitus without complications; E66.9 Obesity, unspecified; E87.6 Hypokalemia; F39 Unspecified mood [affective] disorder; G89.4 Chronic pain syndrome; I10 Essential (primary) hypertension; K21.9 Gastro-esophageal reflux disease without esophagitis; K59.00 Constipation, unspecified; M19.90 Unspecified osteoarthritis, unspecified site; Z82.49 Family history of ischemic heart disease and other diseases of the circulatory system; Z96.653 Presence of artificial knee joint, bilateral; E55.9 Vitamin D deficiency, unspecified; R00.1 Bradycardia, unspecified; R53.81 Other malaise; R26.9 Unspecified abnormalities of gait and mobility; G62.9 Polyneuropathy, unspecified; Z79.899 Other long term (current) drug therapy; Z79.84 Long term (current) use of oral hypoglycemic drugs; Z79.82 Long term (current) use of aspirin; Z68.35 Body mass index [BMI] 35.0-35.9, adult
CPT/HCPCS: 36415; 80048; 80053; 80061; 82306; 82607; 82728; 82746; 82962; 83540; 83550; 83735; 84100; 84134; 84443; 85025; 93970; 97110; 97116; 97163; 97166; 97530; 97535; J1815; J2270; Q0163